=== PATIENT | female | born 1950 | race Two or more races ===

== ENCOUNTER 2017-04-01 07:37 | Observation (INO) | payer OTHER ==
[~2017-04-01] VITALS: Ht 167.6 cm; Wt 90.7 kg
--- NOTE | ~2017-04-01 | EKG ---
PATIENT: KAYLIN LYN UNIT #: [id number] Ventricular Rate: 61 BPM Atrial Rate: 61 BPM P-R Interval: 212 ms QRS Duration: 80 ms Q-T Interval: 456 ms QTC Calculation(Bezet): 459 ms P Hammett: 42 degrees Calculated R Hammett: 10 degrees Calculated T Hammett: 35 degrees Diagnosis Line: Sinus rhythm with 1st degree A-V block Diagnosis Line: Low voltage QRS Diagnosis Line: Borderline ECG Diagnosis Line: When compared with ECG of 15-AUG-2013 09:40, Diagnosis Line: WV interval has increased Diagnosis Line: Questionable change in QRS axis Diagnosis Line: Nonspecific T wave abnormality no longer evident Diagnosis Line: in Inferior leads Diagnosis Line: QT has lengthened Diagnosis Line: Confirmed by MOO SHIN MD ([id number]) on Diagnosis Line: 04/01/2017 3:05:42 PM INTERPRETING MD: ALEIDA URIAS
--- NOTE | ~2017-04-01 | DS ---
Unit #: [id number] #: [id number] Patient: KAYLIN LYN [id number] [id number] [facility]. [place], [place] [address] [id number] I MR#: [id number] NAME: KAYLIN LYN ROOM: 309 Age: 66 Sex: F Admission Date: 04/01/2017 : 1950 Discharge Date: 04/02/2017 Attending Physician: Neyda Zimmer M.D. Primary Care Physician: Radha Mendoza M.D. DISCHARGE SUMMARY SHORT STAY SUMMARY HOSPITAL COURSE This 66-year-old patient was admitted to [facility] with headache and dizziness. Details are as per H and P. Patient was admitted in the hospital. She had MRI of brain and MRA of neck done. MRI of brain did not reveal any acute intracranial abnormality. MRA of neck did not reveal any significant stenosis. Patient was treated with meclizine and her dizziness is much better. Patient also had a headache and was just treated with pain medication and which is much better. Patient's creatinine is 0.3. Today, patient is comfortable and wants to go home. Therefore, she will be discharged home. RECOMMENDATIONS ON DISCHARGE Patient is stable. 1. Activity as tolerated. 2. Patient is advised to follow up with her primary care physician in one week or earlier if needed. 3. Patient is advised to go to ER or call primary care physician if her condition changes. MEDICATIONS Patient is advised to continue all her home medications plus: 1. Tylenol 650 mg p.o. q.6 hours p.r.n. 2. Patient is also advised to take meclizine 25 mg p.o. t.i.d. p.r.n. The plan was discussed with the staff who will discuss with patient via roll edge stitcher hand phone. The plan was also discussed with the patient's who also speaks very limited Swedish. Dictated by... Kary Garcia/milady TD: 04/02/2017 12:37 JOB #: [id number] Unit #: [id number] #: [id number] Patient: KAYLIN LYN DISCHARGE SUMMARY Page 1 of 1 X Sharon Mathew MD SUMMARY
--- NOTE | ~2017-04-01 | MR133 ---
[facility] A Service [facility] RADIOLOGY TEXT RESULTS PATIENT: KAYLIN LYN LOCATION: [facility] 309-01 : 52 UNIT #: [id number] AGE: [address]: Neyda Zimmer MD SEX: F ORDER DR: [id number] [facility] [address] [place], [place] [address] [id number] I MR#: [id number] Acc #: [id number] NAME: KAYLIN LYN : 1950 SEX: F STUDY DATE/TIME: 04/01/2017 11:47 UNIT: CEDOF ROOM: 57005 STUDY DESCRIPTION: MR MRA Neck WWo Contrast Attending Physician: Neyda Zimmer M.D. Ordering Physician: Kvng Pagan D.O. Primary Care Physician: Radha Mendoza M.D. MRI CENTER REPORT This report is preliminary unless electronic signature is present. EXAM MR angiogram neck with and without HISTORY Headache and dizziness onset at 5 a.m. No trauma or cancer history. TECHNIQUE MR angiography performed neck vessels prior to and during the intravenous administration of 18 mL of MultiHance. COMPARISON STUDIES No previous. FINDINGS There is 0% stenosis at the left carotid bifurcation by NASCET criteria. There is 0% stenosis at the right carotid bifurcation by NASCET criteria. There is bovine origin left common carotid artery from the arch. Motion limits evaluation of the vertebral artery origins including on the contrast enhanced portion of the study. The left vertebral artery is dominant. The right is more hypoplastic. IMPRESSION 1. By NASCET criteria 0% stenosis of either carotid bifurcation. 2. The vertebral artery origins are not well seen because of motion. Otherwise, both vertebral arteries are patent, the left is dominant and the right is fairly hypoplastic. Dictated by... Ethel Johnson M.D. THIS IS AN ELECTRONICALLY VERIFIED REPORT Ethel Johnson M.D. at 04/02/2017 6:30 AM [facility] A Service [facility] RADIOLOGY TEXT RESULTS PATIENT: KAYLIN LYN LOCATION: [facility] 309-01 : 52 UNIT #: [id number] AGE: [address]: Neyda Zimmer MD SEX: F ORDER DR: LEIZABETH/kristie TD: 04/01/2017 15:45 JOB #: [id number] MRI CENTER REPORT Page 1 of 1 COPY
--- NOTE | ~2017-04-01 | MR122 ---
[facility] A Service of [facility] RADIOLOGY TEXT RESULTS PATIENT: KAYLIN LYN LOCATION: [facility] : 52 UNIT #: [id number] AGE: [address]: Kvng Pagan DO SEX: F ORDER DR: [id number] [facility] [address] [place], [place] [address] [id number] MR#: [id number] Acc #: [id number] NAME: KAYLIN LYN : 1950 SEX: F STUDY DATE/TIME: 04/01/2017 11:31 UNIT: [facility] ROOM: STUDY DESCRIPTION: MR MRA Head Wo Contrast Attending Physician: Kvng Pagan D.O. Ordering Physician: Kvng Pagan D.O. Primary Care Physician: Radha Mendoza M.D. MRI CENTER REPORT This report is preliminary unless electronic signature is present. EXAM MR angiogram, intracranial, without contrast, 04/01/2017. HISTORY Headache and dizziness, onset of symptoms at 5 a.m. today. No history of cancer or trauma indicated. TECHNIQUE MR angiography performed jena of Miramontes vasculature without contrast. 1.5-T system utilized. COMPARISON There is a separate brain MRI and MR angiogram neck. FINDINGS There is largely a origin to the right posterior cerebral artery distribution with a hypoplastic right P1 vessel seen. The distal left vertebral artery is dominant with the majority of supply to the basilar from the left rather than the right-sided distal vertebral artery. There is a small anterior communicating artery present. No intracranial vascular cutoff is seen. No focal central stenosis is suspected. There is a tiny left posterior communicator present. No intracranial aneurysm is suspected, allowing for the technical limitation of MR angiography in general, for evaluation for small aneurysms. IMPRESSION No intracranial vascular cutoff or focal central stenosis is suspected. Vascular variations are detailed above. STAT * RESULT Dictated by... Ethel Johnson M.D. [facility] A Service of [facility] RADIOLOGY TEXT RESULTS PATIENT: KAYLIN LYN [facility] [id number] : [birth year] UNIT #: [id number] AGE: [address]: Kvng Pagan DO SEX: F ORDER DR: THIS IS AN ELECTRONICALLY VERIFIED REPORT Ethel Johnson M.D. at 04/01/2017 3:20 PM ELIZABETH/fatemeh TD: 04/01/2017 13:51 JOB #: [id number] MRI CENTER REPORT Page 1 of 1 COPY
--- NOTE | ~2017-04-01 | MR18 ---
[facility] A Service of [facility] RADIOLOGY TEXT RESULTS PATIENT: KAYLIN LYN LOCATION: [facility] 309-01 : 54 UNIT #: [id number] AGE: [address]: Neyda Zimmer MD SEX: F ORDER DR: [id number] [facility] [address] [facility]. [place], [place] [address] [id number] MR#: [id number] Acc #: [id number] NAME: KAYLIN LYN : 1950 SEX: F STUDY DATE/TIME: 04/01/2017 11:12 UNIT: [facility] ROOM: STUDY DESCRIPTION: MR Brain Wo Contrast Attending Physician: Kvng Pagan D.O. Ordering Physician: Kvng Pagan D.O. Primary Care Physician: Radha Mendoza M.D. MRI CENTER REPORT This report is preliminary unless electronic signature is present. EXAM Brain MRI without HISTORY Neurologic deficit. Headache and dizziness, onset of symptoms at 5 a.m. today. No history of cancer or trauma indicated. FINDINGS MRI of the brain was performed without contrast using routine 1.5T imaging technique. There is an earlier head CT from 01/23/2017. There is a previous MRI from 02/22/2012. There is no evidence for a recent ischemic insult on the diffusion series. Midline structures are unremarkable. There is no MRI evidence for intracranial hemorrhage. There is no extraaxial fluid collection. There is a tiny lacune at the left inferior cerebellar hemisphere. The major intracranial flow voids are maintained. There is mild prominence of the perivascular spaces in general. Mild paranasal sinus disease. Mild nonspecific white matter signal abnormality likely due to small vessel disease in age group, most apparent in subcortical white matter. Amount seen is not unexpected in this patient's age group and is similar to prior. IMPRESSION 1. Mild probable sequelae of small vessel disease. 2. No evidence for a recent ischemic insult on the diffusion series. No intracranial mass effect. Dictated by... Ethel Johnson M.D. [facility] A Service of [facility] RADIOLOGY TEXT RESULTS PATIENT: KAYLIN LYN LOCATION: [facility] 309-01 : [birth year] UNIT #: [id number] AGE: [address]: Neyda Zimmer MD SEX: F ORDER DR: THIS IS AN ELECTRONICALLY VERIFIED REPORT Ethel Johnson M.D. at 04/02/2017 6:30 AM Rafael TD: 04/01/2017 15:38 JOB #: [id number] MRI CENTER REPORT Page 1 of 1 COPY
--- NOTE | ~2017-04-01 | HP ---
Unit #: [id number] #: [id number] Patient: KAYLIN MEJÍA [id number] [facility] [address]. [place], [place] [address] [id number] I MR#: [id number] NAME: KAYLIN MEJÍA ROOM: 309 Age: 66 Sex: F Admission Date: 04/01/2017 : 1950 Attending Physician: Neyda Zimmer M.D. Primary Care Physician: Radha Mendoza M.D. HISTORY AND PHYSICAL CHIEF COMPLAINT Headache and dizziness. HISTORY OF PRESENT ILLNESS The patient is a 66-year-old female with past medical history of hypothyroidism, seasonal allergies, who presented to the emergency department for evaluation of the above. The patient is from [facility] and does not speak Khmer. She declines leather dresser phone and prefers that her son, Joselyn Mejía, translate. The patient has apparently not been feeling well since this morning around 5:00 a.m. She states that she has a severe headache. She describes it as "pain." She states that it started in the front of her head and spread to the back of her head. She is unsure of photophobia or phonophobia. She has had associated nausea. She also reports dizziness. She states that the room is "spinning." It is exacerbated by position changes. It is alleviated somewhat by lying still. Regarding the headaches, she did have similar headaches about 10 years ago but has really not had a severe headache for about 10 years. She has never had a similar dizzy feeling. She denies any recent upper respiratory symptoms. She did have loose stool yesterday. In the emergency department, MRI/MRA of the head and neck were done and negative. She received 500 mL of normal saline as well as 10 mg of Reglan, 10 mg of Decadron, 25 mg of Benadryl and 2 mg of morphine. She is being admitted to [facility] for evaluation and further treatment. PAST MEDICAL HISTORY 1. Admission to [facility] approximately three years ago for thyroidectomy for benign thyroid condition per the family (no records). 2. Hypothyroidism. 3. Echocardiogram May 21, 2013 showed ejection fraction greater than 55%. 4. Stress test May 21, 2013 showed moderate-sized territory of anterior wall ischemia with preserved LV function calculated at 65%. 5. Possible obstructive sleep apnea. The patient had a sleep study with Dr. Solorzano. PAST SURGICAL HISTORY Thyroidectomy. SOCIAL HISTORY The patient lives with her son. There is no tobacco or alcohol use. She typically walks without assistance. Unit #: [id number] #: [id number] Patient: KAYLIN MEJÍA FAMILY HISTORY Family history is notable for there being no family history of heart disease. ALLERGIES No known allergies. HOME MEDICATIONS 1. Synthroid 100 mcg daily. 2. Singulair 10 mg daily. 3. Vitamin D 50,000 units weekly. 4. Cetirizine 10 mg daily. 5. Ventolin one to two puffs q.4-6 h. p.r.n. 6. Breo Ellipta 100/25 inhaled daily. 7. Calcium 1000 mg daily. REVIEW OF SYSTEMS A complete review of systems is negative except as indicated in the HPI. DIAGNOSTIC STUDIES CARDIOVASCULAR: EKG shows sinus rhythm with first-degree Av block and a rate of 61 beats per minute. IMAGING: MRI/MRA of the head and neck essentially negative. LABORATORY: Complete blood count is essentially normal. INR is 1.2. Comprehensive metabolic panel notable for glucose of 116, CRP is less than 0.5, sed rate is 29, troponin is less than 0.05. PHYSICAL EXAMINATION VITAL SIGNS: Temperature is 97.7. Pulse 56. Respirations 16. Blood pressure 174/34, most recently 137/80. Oxygen saturation 97% on room air. GENERAL: The patient is awake and alert, in no acute distress. HEENT: The head is atraumatic. Mucous membranes are moist. NECK: Neck is supple. Trachea is midline. CARDIOVASCULAR: Regular rate and rhythm. LUNGS: Lungs are clear to auscultation bilaterally with no increased work of breathing. ABDOMEN: Abdomen is soft, nontender, with bowel sounds present all four quadrants. EXTREMITIES: Nontender, with no pedal edema. NEUROLOGIC: The patient is awake and alert. She follows commands. PSYCHIATRIC: Mood and affect are normal. The patient is cooperative. SKIN: Skin of examined areas was warm and dry. ASSESSMENT The patient is a 66-year-old female with: 1. Vertigo. MRI and MRA of the head and neck are negative. The patient denies recent upper respiratory symptoms. 2. Intractable headache. The patient received Decadron, Benadryl and Reglan in the emergency department as well as 2 mg of morphine. She states that her pain is currently at a 4. 3. Hypothyroidism. 4. General weakness. 5. Seasonal allergies. PLAN 1. Admit for observation to intermediate level. Unit #: [id number] #: [id number] Patient: KAYLIN MEJÍA 2. Bedrest. 3. Fall precautions. 4. Healthy heart diet if passes bedside swallow. 5. Normal saline at 75 mL an hour. 6. PT/OT to evaluate and treat. 7. P.r.n. meclizine. 8. P.r.n. Toradol. 9. P.r.n. Zofran. 10. P.r.n. Tylenol. 11. Serial cardiac enzymes. 12. TSH. 13. SCDs. 14. Repeat labs in the morning. 15. Additional workup and consultants based on above. Dictated by Kary Varma/yair TD: 04/01/2017 17:14 JOB #: [id number] HISTORY AND PHYSICAL Page 1 of 1 X Neyda Zimmer MD X HISTORY AND PHYSICAL
[~2017-04-01 07:37] MED LIST: ACETAMINOPHEN PO; ALBUTEROL17 GM INH; CALCIUM 5001 TAB PO; LEVAQUIN750 MG PO; LEVO-T100 MCG PO; NO MEDICATIONS; ROBITUSSIN A-C S5 ML PO; SINGULAIR PO; SYMBICORT INH; TAMIFLU75 M1 DOB; ULTRAM PO; VITAMIN D50000 UNIT PO
[2017-04-01 08:26] LABS: BASOPHIL% 0.7 % (0-2.5); EOSINOPHIL# 0.2 X10e3 (0-0.7); EOSINOPHIL% 4.6 % (0.0-7.0); HEMATOCRIT 38.9 % (35.0-45.0); HEMOGLOBIN 13.1 gm/dL (12.0-16.0); LYMPHOCYTE# 1.9 X10e3 (1.0-3.5); LYMPHOCYTE% 43.6 % (17.0-45.0); MEAN CELL VOLUME 93.4 FL (83-96); MEAN CORPUSCULAR HEMOGLOBIN 31.4 PG (28-34); MEAN CORPUSCULAR HGB CONC 33.6 g/dL (30-36); MEAN PLATELET VOLUME 8.8 FL (6.5-11.5); MONOCYTE# 0.5 X10e3 (0-1.0); MONOCYTE% 12.4 % (3.0-12.0); NEUTROPHIL# 1.7 X10e3 (1.5-7.1); NEUTROPHIL% 38.7 % (40-75); PLATELET COUNT 177 X10e3 (140-420); RED BLOOD COUNT 4.16 X10e (3.90-5.30); RED CELL DISTRIBUTION WIDTH 13.6 % (11.0-15.5); WHITE BLOOD COUNT 4.4 X10e3 (4.0-10.5)
[2017-04-01 08:27] LABS: DIFF IND NO
[2017-04-01 08:41] LABS: INR 1.2; PARTIAL THROMBOPLASTIN TIME 28.9 SECONDS (23.5-31.3); PROTHROMBIN TIME (PATIENT) 12.6 SECONDS (10.0-11.7)
[2017-04-01 08:56] LABS: ALBUMIN SERUM 3.6 g/dL (3.5-5.0); BILIRUBIN, DIRECT 0.1 mg/dL (0.0-0.2); BILIRUBIN,INDIRECT 0.8 mg/dL (0.0-0.9); BILIRUBIN,TOTAL 0.9 mg/dL (0.2-2.0); BUN/CREATININE RATIO 17.77; CALCIUM SERUM 8.7 mg/dL (8.4-10.2); CREATININE SERUM 0.9 mg/dL (0.6-1.4); GLOM FILT RATE Estimated 67.6 mL/min (>60); POTASSIUM 3.6 mmol/L (3.5-5.1); PROTEIN TOTAL SERUM 6.6 g/dL (6.0-8.3)
[2017-04-01 09:42] LABS: POC - CKMB <1.0 ng/mL (0.0-7.9); POC - TROPONIN <0.05 ng/mL (<=0.05)
[2017-04-01] MEDS ORDERED: SINGULAIR PO (11:15)
[2017-04-01] MEDS ORDERED: VITAMIN D250000 UNIT PO (11:15)
[2017-04-01] MEDS ORDERED: PATIENT'S PHARMACY (11:15)
[2017-04-01] MEDS ORDERED: SYNTHROID PO (11:15)
[2017-04-01] MEDS ORDERED: ALBUTEROL17 GM INH (11:16)
[2017-04-01] MEDS ORDERED: ALL DAY ALLERGY10 M3 PO (11:16)
[2017-04-01] MEDS ORDERED: CALCIUM500 M1 PO (11:16)
[2017-04-01] MEDS ORDERED: BREO ELLIPTA 11 EACH INH (11:16)
[2017-04-01 13:17] LABS: POC - CKMB <1.0 ng/mL (0.0-7.9); POC - TROPONIN <0.05 ng/mL (<=0.05)
[2017-04-01 20:22] LABS: CK TOTAL 49 IU/L (26-140)
[2017-04-02 01:53] LABS: CK TOTAL 45 IU/L (26-140)
[2017-04-02 02:04] LABS: HEMATOCRIT 39.1 % (35.0-45.0); HEMOGLOBIN 13.3 gm/dL (12.0-16.0); MEAN CELL VOLUME 92.9 FL (83-96); MEAN CORPUSCULAR HEMOGLOBIN 31.5 PG (28-34); MEAN CORPUSCULAR HGB CONC 33.9 g/dL (30-36); MEAN PLATELET VOLUME 9.1 FL (6.5-11.5); RED BLOOD COUNT 4.21 X10e (3.90-5.30); RED CELL DISTRIBUTION WIDTH 13.6 % (11.0-15.5)
[2017-04-02 02:08] LABS: WHITE BLOOD COUNT 7.8 X10e3 (4.0-10.5)
[2017-04-02 02:15] LABS: BUN/CREATININE RATIO 21.11; CALCIUM SERUM 8.5 mg/dL (8.4-10.2); CREATININE SERUM 0.9 mg/dL (0.6-1.4); GLOM FILT RATE Estimated 67.6 mL/min (>60)
[2017-04-02] MEDS ORDERED: MOTION-TIME25 MG PO (09:52)
[2017-04-02] MEDS ORDERED: ACETAMINOPHEN650 M2 PO (09:54)
== END 2017-04-02 11:20 | disposition home or self-care (01) ==
LOC: CED 07:37 → CEDOF 15:15 → CED 15:41 → C3A PCU 16:25 → CEDOF 16:25 → C3A PCU 04-02 11:20
PROVIDERS: Emergency Medicine; Family Medicine
DX: R51 Headache (principal); R42 Dizziness and giddiness; E03.9 Hypothyroidism, unspecified; J30.2 Other seasonal allergic rhinitis; Z79.899 Other long term (current) drug therapy
CPT/HCPCS: 36415; 70544; 70549; 70551; 80048; 80076; 82550; 82553; 84443; 84484; 85025; 85027; 85610; 85652; 85730; 86140; 93005; 94640; 94664; 94760; 96361; 96374; 96375; 99285; A9577; G0378; J1100; J1200; J1885; J2270; J2765